=== PATIENT | female | born 1960 | race Caucasian/White ===

== ENCOUNTER 2017-02-12 22:29 | Emergency (ER) | payer BC, MEDICAID ==
[~2017-02-12] VITALS: Ht 157.5 cm; Wt 59.0 kg
[~2017-02-12 22:29] MED LIST: AMPH10TA4; LEVO25TA2; SERT20OR; TOPI25CA
--- NOTE | 2017-02-12 23:01 | NUR ---
PT BIBSELF, C/O RIGHT SIDED RIB PAIN, SOB X 1 DAY DENIES TRAUMA. PT AOX4 RR EVEN AND UNLABORED. NO SOB NOTED. NAD NOTED. NO NVD AT THIS TIME. PT NOT DIAPHORETIC. PT GOWNED AND PLACED ON MONITOR WAITING FOR MD MCKENZIE.
[2017-02-13] MEDS ORDERED: ACETAMINOPHEN ES 500 MG TABLET ONE (00:20)
[2017-02-13] MEDS ORDERED: ACETAMINOPHEN ES 500 MG TABLET PO ONE (00:30)
--- NOTE | 2017-02-13 00:40 | NUR ---
RT at bedside to teach patient incentive spirometry.
--- NOTE | 2017-02-13 01:23 | NUR ---
PATIENT IS SLEEPING COMFORTABLY IN BED AT THIS TIME.
[2017-02-13 02:57] VITALS: BP 128/65
--- NOTE | 2017-02-13 02:57 | NUR ---
Patient discharged to home in stable condition. Written and verbal after care instructions given. Patient verbalizes understanding of instruction. Patient is ambulatory with steady gait, no further complaints. vss.
== END 2017-02-13 02:58 | disposition home or self-care (01) ==
LOC: ER 22:30
DX: S22.31XA Fracture of one rib, right side, initial encounter for closed fracture (principal); J06.9 Acute upper respiratory infection, unspecified; B19.20 Unspecified viral hepatitis C without hepatic coma; X58.XXXA Exposure to other specified factors, initial encounter; Y93.89 Activity, other specified; Y92.69 Other specified industrial and construction area as the place of occurrence of the external cause; Y99.8 Other external cause status
CPT/HCPCS: 71010; 99283; A4606; Z7610

== ENCOUNTER 2017-07-29 07:26 | Emergency (ER) | payer BC, MEDICAID ==
[~2017-07-29] VITALS: Ht 157.5 cm; Wt 61.2 kg
[2017-07-29 07:30] VITALS: BP 121/79
== END 2017-07-29 08:28 | disposition home or self-care (01) ==
LOC: ER 07:30
DX: R59.0 Localized enlarged lymph nodes (principal); F17.200 Nicotine dependence, unspecified, uncomplicated
CPT/HCPCS: 99283; A4606; Z7610

== ENCOUNTER 2019-01-03 09:59 | Emergency (ER) | payer BC, MEDICAID, OTHER ==
[~2019-01-03] VITALS: Ht 157.5 cm; Wt 64.4 kg
--- NOTE | 2019-01-03 10:03 | NUR ---
aaox3, came to er c/o diffuse abdominal pain and diarrhea x 3 weeks.RR is even and unlabored with nad noted. Skin is warm and dry. Awaiting md for eval.
[2019-01-03 10:29] LABS: APPEARANCE,URINE Clear (CLEAR); BASOPHILS # (AUTO) 0.1 /CMM (0.0-0.2); BASOPHILS % (AUTO) 0.9 % (0.0-2.0); BILIRUBIN,URINE Negative (NEGATIVE); BLOOD, URINE Negative Ery/uL (NEGATIVE); COLOR,URINE Yellow (YELLOW); EOSINOPHILS % (AUTO) 1.8 % (0.0-6.0); HEMATOCRIT 42 % (33-45); HEMOGLOBIN 14.5 g/dL (11.5-14.8); KETONES,URINE Negative (NEGATIVE); LEUKOCYTE ESTERASE ,URINE Negative (NEGATIVE); LYMPHOCYTES # (AUTO) 1.4 /CMM (0.8-4.8); LYMPHOCYTES % (AUTO) 23.8 % (20.0-44.0); MEAN CORPUSCULAR HGB CONC 34 g/dl (31.0-36.0); MEAN CORPUSCULAR VOLUME 95 fL (82-100); MONOCYTES # (AUTO) 0.5 /CMM (0.1-1.30); MONOCYTES % (AUTO) 8.5 % (2.0-12.0); NEUTROPHILS # (AUTO) 3.8 /CMM (1.8-8.9); NITRITE, URINE Negative (NEGATIVE); PH,URINE 5.5 (5.0-8.0); PLATELET COUNT (AUTO) 223 /CMM (150-450); PROTEIN,URINE Negative (NEGATIVE); RED BLOOD CELL COUNT(AUTO) 4.45 MIL/uL (4.0-5.2); UGLUCOSE Negative (NEGATIVE); UROBILINOGEN,URINE 0.2 EU/dL (0.2); WHITE BLOOD COUNT (AUTO) 5.8 K/uL (4.3-11.0)
[2019-01-03] MEDS ORDERED: ONDANSETRON HCL/PF 4 MG/2 ML VIAL IVP ONE (10:30)
[2019-01-03] MEDS ORDERED: IV NS 0.9% 1,000 ML BAG IV ONE (10:30)
[2019-01-03 10:36] LABS: CARBON DIOXIDE 26 mmol/L (21-32); CHLORIDE 104 mmol/L (98-107); CREATININE 0.8 mg/dL (0.6-1.3); GLUCOSE 130 mg/dL (74-106); POTASSIUM 3.8 mmol/L (3.5-5.1); SODIUM SERUM 139 mmol/L (136-145); UREA NITROGEN, BLOOD 8 mg/dL (7-18)
[2019-01-03 10:42] LABS: ALANINE AMINOTRANSFERASE 25 U/L (12-78); ALBUMIN 3.4 g/dL (3.4-5.0); ALKALINE PHOSPHATASE 98 U/L (46-116); ASPARTATE AMINOTRANSFERASE 20 U/L (15-37); BILIRUBIN,TOTAL 0.3 mg/dL (0.2-1.0); LIPASE 121 U/L (73-393); TOTAL PROTEIN, SERUM 6.9 g/dL (6.4-8.2)
--- NOTE | 2019-01-03 11:07 | NUR ---
PT OT RADIOLOGY FOR ABDOMINAL CT CAN VIA WHEELCHAIR.
[2019-01-03 12:15] VITALS: BP 121/80
--- NOTE | 2019-01-03 12:15 | NUR ---
Patient discharged to home in stable condition. Written and verbal after care instructions given. Patient verbalizes understanding of instruction.IV removed. Catheter intact and site benign. Pressure and 4x4 applied to site. No bleeding noted.
== END 2019-01-03 12:15 | disposition home or self-care (01) ==
LOC: ER 09:59
DX: K57.30 Diverticulosis of large intestine without perforation or abscess without bleeding (principal); K42.9 Umbilical hernia without obstruction or gangrene; R19.7 Diarrhea, unspecified; I10 Essential (primary) hypertension; F32.9 Major depressive disorder, single episode, unspecified; F90.9 Attention-deficit hyperactivity disorder, unspecified type; Z86.19 Personal history of other infectious and parasitic diseases; Z98.890 Other specified postprocedural states
CPT/HCPCS: 36415; 74176; 80048; 80076; 81001; 83690; 84484; 85025; 96360; 99284; J7030; 81000-TC

== ENCOUNTER 2019-07-04 02:27 | Emergency (ER) | payer OTHER ==
[~2019-07-04] VITALS: Ht 157.5 cm; Wt 64.9 kg
--- NOTE | 2019-07-04 02:40 | NUR ---
PT AAOX4. AMBULATORY. PT C/O R KNEE 03/17 SHARP NON RADIATING PAIN SINCE YESTERDAY. PT ABLE TO EXTEND HER KNEE AND IS AMBULATORY. RR EVEN AND UNLABORED. NO ACUTE DISTRESS NOTED.
[2019-07-04] MEDS ORDERED: IBUPROFEN 400 MG TABLET ONE (02:58)
[2019-07-04] MEDS ORDERED: IBUPROFEN 400 MG TABLET PO ONE (03:00)
--- NOTE | 2019-07-04 03:10 | NUR ---
xray at bedside
--- NOTE | 2019-07-04 03:45 | NUR ---
EMT AT BEDSIDE FOR KNEE IMMOBILIZER PLACEMENT AND CRUTCHES.
--- NOTE | 2019-07-04 03:53 | NUR ---
Patient discharged to home in stable condition. Written and verbal after care instructions given. Patient verbalizes understanding of instruction of crutches and RX. pt ambulatory with a steady gait using crutches. Pt ambulated in the ER using her crutches before she left.
[2019-07-04 03:57] VITALS: BP 109/84
== END 2019-07-04 03:58 | disposition home or self-care (01) ==
LOC: ER 02:34
DX: M25.561 Pain in right knee (principal); F32.9 Major depressive disorder, single episode, unspecified; F90.9 Attention-deficit hyperactivity disorder, unspecified type; F17.200 Nicotine dependence, unspecified, uncomplicated; Z86.19 Personal history of other infectious and parasitic diseases; Z71.6 Tobacco abuse counseling; Z98.890 Other specified postprocedural states; Z79.899 Other long term (current) drug therapy
CPT/HCPCS: 73564-TC; 73590-TC

== ENCOUNTER 2022-04-11 15:52 | Emergency (ER) | payer OTHER ==
[~2022-04-11] VITALS: Ht 160 cm; Wt 56.7 kg
[2022-04-11 15:58] VITALS: BP 116/84
[2022-04-11] MEDS ORDERED: clonazePAM 1 MG TABLET ONE (18:23)
[2022-04-11] MEDS ORDERED: clonazePAM 1 MG TABLET PO ONE (18:30)
[2022-04-11] MEDS ORDERED: CLON1TAB PO (18:32)
--- NOTE | 2022-04-11 18:39 | NUR ---
Patient discharged to home in stable condition. Written and verbal after care instructions given. Patient verbalizes understanding of instruction.
== END 2022-04-11 18:39 | disposition home or self-care (01) ==
LOC: ER 15:57
DX: F41.9 Anxiety disorder, unspecified (principal); F13.20 Sedative, hypnotic or anxiolytic dependence, uncomplicated; F32.A Depression, unspecified; F90.9 Attention-deficit hyperactivity disorder, unspecified type; F17.200 Nicotine dependence, unspecified, uncomplicated; Z79.899 Other long term (current) drug therapy